=== PATIENT | male | born 1950 | race Caucasian/White ===

== ENCOUNTER 2017-12-11 14:13 | Emergency (ER) | payer BC, MEDICARE ==
--- NOTE | 2017-12-11 14:56 | EDM.PDOC ---
ED HPI GENERAL MEDICAL PROBLEM - General Chief Complaint: Lower Extremity Injury/Pain Stated Complaint: INJURED LEFT LEG WATER SKIING Time Seen by Provider: 12/11/17 14:43 Source of Information: Reports: Patient, RN Notes Reviewed History Limitations: Reports: No Limitations - History of Present Illness INITIAL COMMENTS - FREE TEXT/NARRATIVE: 67-year-old gentleman presents to the emergency department today following an injury he received while skiing, he states his he was given pulled out of the water he something pull and snapped on his left upper leg he has had difficulty ambulating because of the pain, feels this is a hamstring injury left hamstring Pain Score (Numeric/FACES): 7 - Related Data Allergies Allergy/AdvReac Type Severity Reaction Status Date / Time No Known Allergies Allergy Verified 12/11/17 15:14 Home Meds: Home Meds Lisinopril 10 mg PO DAILY 12/11/17 [History] Simvastatin [Zocor] 40 mg PO BEDTIME 12/11/17 [History] Past Medical History Cardiovascular History: Reports: Hypertension Immunologic History: Reports: Other (See Below) (allergies) Social & Family History - Tobacco Use Smoking Status *Q: Never Smoker Review of Systems - Review of Systems Review Of Systems: See Below Respiratory: Reports: No Symptoms Cardiovascular: Reports: No Symptoms GI/Abdominal: Reports: Nausea Musculoskeletal: Reports: Leg Pain Neurological: Reports: No Symptoms ED EXAM, GENERAL - Physical Exam Exam: See Below Free Text/Narrative:: Examination of the left extremity lower I do not appreciate any bulge he is tender to palpation in the proximal aspect of the posterior thigh there is no tenderness at the knee he does have an Achilles reflex, pedal pulse is +2 Exam Limited By: No Limitations General Appearance: Alert, WD/WN, No Apparent Distress Respiratory/Chest: No Respiratory Distress Course - Vital Signs Last Recorded V/S: Last Vital Signs Temp 97.5 F 12/11/17 14:39 Pulse 84 12/11/17 14:39 Resp 16 12/11/17 14:39 BP 173/90 H 12/11/17 14:39 Pulse Ox 98 12/11/17 14:39 - Orders/Labs/Meds Meds: Medications Discontinued Medications Generic Name Dose Route Start Last Admin Trade Name Freq PRN Reason Stop Dose Admin Cyclobenzaprine HCl 10 mg 12/11/17 14:47 12/11/17 15:19 Flexeril PO 12/11/17 14:48 10 mg ONETIME ONE Administration Ketorolac Tromethamine 30 mg 12/11/17 14:47 12/11/17 15:19 Toradol IM 12/11/17 14:48 30 mg ONETIME ONE Administration Departure - Departure Time of Disposition: 15:49 Disposition: Home, Self-Care 01 Condition: Good Clinical Impression: Hamstring muscle strain Qualifiers: Encounter type: initial encounter Laterality: left Qualified Code(s): S76.312A - Strain of muscle, fascia and tendon of the posterior muscle group at thigh level, left thigh, initial encounter - Discharge Information Referrals: PCP,None [Primary Care Provider] - Forms: ED Department Discharge Additional Instructions: Continue to use nonsteroidal anti-inflammatories use hydrocodone for breakthrough pain, please follow-up with your primary care upon return home, call or return to the emergency department with worsening of symptoms - Assessment/Plan Plan: Assessment Acuity = acute Site and laterality = left hamstring injury Etiology = secondary to waterskiing trauma Manifestations = pain Location of injury = Home Lab values = none Plan His clinic use nonsteroidal anti-inflammatories, prescription written for hydrocodone 5/325 one tab by mouth 3 times a day when necessary total #10 for breakthrough pain then a prescription for Zofran 4 mg ODT 1 tab by mouth every 8 hours to calm back the side effects of the narcotics. He is going to follow- up with his primary care upon return home and discussed the need for an MRI This note was dictated using [employer] voice recognition software please call with any questions on syntax or grammar.
[2017-12-11] MEDS: Cyclobenzaprine 10 MG Tab PO ONE (15:19)
[2017-12-11] MEDS: Ketorolac 30 MG/ML SDV IM ONE (15:19)
== END 2017-12-11 16:25 | disposition home or self-care (01) ==
LOC: JP.ED 14:13
DX: S76.312A Strain of muscle, fascia and tendon of the posterior muscle group at thigh level, left thigh, initial encounter (principal); I10 Essential (primary) hypertension; Z79.899 Other long term (current) drug therapy; Y93.17 Activity, water skiing and wake boarding; X50.9XXA Other and unspecified overexertion or strenuous movements or postures, initial encounter
CPT/HCPCS: 96372; 99283; A9270; J1885